=== PATIENT | female | born 1960 | race Caucasian/White ===

== ENCOUNTER 2018-06-04 17:30 | Inpatient (IN) | payer MEDICAID, OTHER ==
[~2018-06-04] VITALS: Ht 153.4 cm; Wt 47.2 kg
[2018-06-04 18:59] LABS: Basophils # (auto) 0 uL; Basophils % (auto) 0.1 % (0.0-2.0); Eosinophils # (auto) 0 uL; Hematocrit 40.6 % (36.0-46.0); Lymphocytes # (auto) 0.6 uL; Lymphocytes % (auto) 5.5 % (10.0-50.0); Mean Corpuscular Hemoglobin 28.4 pg (28.0-32.0); Mean Corpuscular Hgb Conc. 32.1 g/dL (32.0-36.0); Mean Corpuscular Volume 88.7 fL (80.0-100.0); Monocytes # (auto) 0.8 uL; Monocytes % (auto) 7.5 % (0.0-12.0); Neutrophils # (auto) 8.9 uL; Neutrophils % (auto) 86.9 % (37.0-80.0); Platelet Count (auto) 168 10^3/uL (140-450); Red Blood Cells 4.58 10^6/uL (4.0-5.20); Red Cell Distribution Width 15.5 % (11.8-14.3); White Blood Cell 10.2 10^3/uL (4.4-10.8)
[2018-06-04 19:19] LABS: Potassium 4.7 mmol/L (3.5-5.1)
[2018-06-04 19:23] LABS: BUN/Creatinine Ratio 15.2; Calcium 8.8 mg/dL (8.5-10.1); Magnesium 2.1 mg/dL (1.6-2.6)
[2018-06-04 19:29] LABS: Bilirubin, Total 0.6 mg/dL (0.2-1.0); Total Protein 6.8 g/dL (6.4-8.2)
[2018-06-04] MEDS ORDERED: SODIUM CHLORIDE 0.9% 1,000 ML IVB ONE (20:16)
[2018-06-04] MEDS ORDERED: ONDANSETRON HCL 4 MG/2 ML VIAL IV ONE (20:30)
[2018-06-04] MEDS: SODIUM CHLORIDE 0.9% 1,000 ML IV SCH (20:49)
[2018-06-04 20:57] LABS: Amylase 30 U/L (25-115); Lipase 74 U/L (73-393)
[2018-06-04] MEDS ORDERED: TEMAZEPAM 15 MG CAP PO PRN (21:00)
[2018-06-04] MEDS ORDERED: ASPirin 81 mg TAB PO ONE (21:00)
[2018-06-04] MEDS ORDERED: NITROGLYCERIN 0.4 MG SL TAB SL PRN (21:00)
[2018-06-04] MEDS ORDERED: ONDANSETRON HCL 4 MG/2 ML VIAL IV PRN (21:00)
[2018-06-04] MEDS ORDERED: MORPHINE SULF INJ 2 MG/ML SYRINGE 1ML IV PRN (21:00)
[2018-06-04 22:29] VITALS: BP 101/65
[2018-06-04] MEDS: ATORVASTATIN 20 MG TAB PO SCH (23:36)
[2018-06-04] MEDS: FAMOTIDINE 20 MG TAB PO SCH (23:36)
[2018-06-04 23:44] VITALS: BP 101/65
[2018-06-05] MEDS ORDERED: INDO50CA82 PO (00:24)
[2018-06-05] MEDS ORDERED: HYDR-4683 PO (00:24)
[2018-06-05 00:32] VITALS: BP 101/65
[2018-06-05 04:44] LABS: Basophils # (auto) 0.1 uL; Basophils % (auto) 0.8 % (0.0-2.0); Eosinophils # (auto) 0.1 uL; Eosinophils % (auto) 1.3 % (0.0-7.0); Hematocrit 36.4 % (36.0-46.0); Hemoglobin 11.9 g/dL (12.2-16.2); Lymphocytes # (auto) 1.6 uL; Lymphocytes % (auto) 20.1 % (10.0-50.0); Mean Corpuscular Hemoglobin 28.6 pg (28.0-32.0); Mean Corpuscular Hgb Conc. 32.8 g/dL (32.0-36.0); Mean Corpuscular Volume 87.2 fL (80.0-100.0); Monocytes # (auto) 0.9 uL; Monocytes % (auto) 10.5 % (0.0-12.0); Neutrophils # (auto) 5.5 uL; Neutrophils % (auto) 67.3 % (37.0-80.0); Nucleated Red Blood Cells % 0.1 %; Platelet Count (auto) 186 10^3/uL (140-450); Red Blood Cells 4.17 10^6/uL (4.0-5.20); Red Cell Distribution Width 15.4 % (11.8-14.3); White Blood Cell 8.2 10^3/uL (4.4-10.8)
[2018-06-05 05:14] LABS: Albumin 2.5 g/dL (3.4-5.0); BUN/Creatinine Ratio 25.4; Bilirubin, Total 0.3 mg/dL (0.2-1.0); Calcium 8.3 mg/dL (8.5-10.1); Potassium 3.8 mmol/L (3.5-5.1); Total Protein 5.7 g/dL (6.4-8.2)
[2018-06-05 05:28] VITALS: BP 107/70
[2018-06-05 08:21] LABS: Alcohol, Urine < 3.0 mg/dL (0-5); Amphetamine Screen, Urine POSITIVE (NEGATIVE); Barbiturate Scree,Urine NEGATIVE (NEGATIVE); Benzodiazephine Screen, Urine NEGATIVE (NEGATIVE); Cannabinoid Screen, Urine NEGATIVE (NEGATIVE); Cocaine Screen, Urine NEGATIVE (NEGATIVE); Opiate Scree,Urine POSITIVE (NEGATIVE); Phencyclidine Screen, Urine NEGATIVE (NEGATIVE); Urine Bacteria MOD /hpf (None Seen); Urine Blood Negative /uL (Negative); Urine Hyaline Cast FEW /lpf (0 - 2); Urine Mucus FEW (None Seen); Urine Specific Gravity 1.023 (1.001-1.035); Urine WBC 4 /hpf (0 - 5)
[2018-06-05 09:02] VITALS: BP 105/67
[2018-06-05] MEDS: ACETAMINOPHEN 325 MG TAB PO PRN ×2 (09:21→13:50)
[2018-06-05] MEDS: FAMOTIDINE 20 MG TAB PO SCH ×2 (09:23→20:31)
[2018-06-05] MEDS: ENOXAPARIN SOD 40 MG/0.4 ML SYRINGE SC SCH (09:24)
[2018-06-05] MEDS: ASPirin 81 mg TAB PO SCH (09:24)
[2018-06-05] MEDS: SODIUM CHLORIDE 0.9% 1,000 ML IV SCH ×2 (09:26→23:29)
[2018-06-05] MEDS: THIAMINE INJ 100 MG, MULTIPLE VITAMIN 10 ML, FOLIC ACID 1 MG, MAGNESIUM SULF SDV 50% 8 ... IV SCH ×5 (12:00)
[2018-06-05] MEDS ORDERED: ADENOSINE 66 MG in GIVE UN-DILUTED 0 ML IV ONE (12:30)
[2018-06-05] MEDS ORDERED: ALBUTEROL SULF 2.5 MG/0.5ML(0.5%) NEB SOLN NEB ONE (12:45)
[2018-06-05] MEDS ORDERED: IPRATROPIUM BROM 0.5 MG/2.5ML INH SOL NEB ONE (12:45)
[2018-06-05 12:58] VITALS: BP 83/102
[2018-06-05] MEDS: LORazepam 2MG/ML-1ML VIAL IV PRN ×2 (13:58→20:31)
[2018-06-05 16:49] VITALS: BP 119/80
[2018-06-05] MEDS: ATORVASTATIN 20 MG TAB PO SCH (20:31)
[2018-06-05 21:30] VITALS: BP 143/86
[2018-06-06 05:00] VITALS: BP 125/85
[2018-06-06 06:13] LABS: Basophils # (auto) 0.1 uL; Basophils % (auto) 0.6 % (0.0-2.0); Eosinophils # (auto) 0.1 uL; Eosinophils % (auto) 1.3 % (0.0-7.0); Hematocrit 39.6 % (36.0-46.0); Lymphocytes # (auto) 1.8 uL; Lymphocytes % (auto) 19.4 % (10.0-50.0); Mean Corpuscular Hemoglobin 28.4 pg (28.0-32.0); Mean Corpuscular Hgb Conc. 32.9 g/dL (32.0-36.0); Mean Corpuscular Volume 86.5 fL (80.0-100.0); Monocytes # (auto) 0.8 uL; Monocytes % (auto) 9.1 % (0.0-12.0); Neutrophils # (auto) 6.3 uL; Neutrophils % (auto) 69.6 % (37.0-80.0); Nucleated Red Blood Cells % 0.1 %; Platelet Count (auto) 233 10^3/uL (140-450); Red Blood Cells 4.58 10^6/uL (4.0-5.20); White Blood Cell 9.1 10^3/uL (4.4-10.8)
[2018-06-06 06:36] LABS: Albumin 2.6 g/dL (3.4-5.0); BUN/Creatinine Ratio 19.6; Bilirubin, Total 0.4 mg/dL (0.2-1.0); Calcium 8.4 mg/dL (8.5-10.1); Magnesium 2.3 mg/dL (1.6-2.6); Potassium 3.8 mmol/L (3.5-5.1); Total Protein 6.1 g/dL (6.4-8.2)
[2018-06-06] MEDS: LORazepam 2MG/ML-1ML VIAL IV PRN ×2 (07:00→23:11)
[2018-06-06 09:00] VITALS: BP 135/87
[2018-06-06] MEDS: FAMOTIDINE 20 MG TAB PO SCH ×2 (10:00→21:46)
[2018-06-06] MEDS: ASPirin 81 mg TAB PO SCH (10:00)
[2018-06-06] MEDS: ENOXAPARIN SOD 40 MG/0.4 ML SYRINGE SC SCH (10:01)
[2018-06-06] MEDS: THIAMINE INJ 100 MG, MULTIPLE VITAMIN 10 ML, FOLIC ACID 1 MG, MAGNESIUM SULF SDV 50% 8 ... IV SCH ×10 (12:00→23:19)
[2018-06-06] MEDS: SODIUM CHLORIDE 0.9% 1,000 ML IV SCH (12:49)
[2018-06-06 13:00] VITALS: BP 136/88
[2018-06-06] MEDS ORDERED: chlordiazePOXIDE HCL 25 MG CAP PO ONE (13:30)
[2018-06-06] MEDS: NICOTINE 21MG/24 HR TOPICAL PATCH TD SCH (13:45)
[2018-06-06] MEDS ORDERED: chlordiazePOXIDE HCL 25 MG CAP PO SCH (18:00)
[2018-06-06] MEDS: chlordiazePOXIDE HCL 25 MG CAP PO SCH (18:02)
[2018-06-06] MEDS: ATORVASTATIN 20 MG TAB PO SCH (21:47)
[2018-06-06] MEDS: ACETAMINOPHEN 325 MG TAB PO PRN (21:47)
[2018-06-06 22:00] VITALS: BP 126/78
[2018-06-07] MEDS: chlordiazePOXIDE HCL 25 MG CAP PO SCH ×5 (00:42→23:46)
[2018-06-07] MEDS: SODIUM CHLORIDE 0.9% 1,000 ML IV SCH ×3 (02:09→21:19)
[2018-06-07 05:00] VITALS: BP 141/87
[2018-06-07] MEDS: LORazepam 2MG/ML-1ML VIAL IV PRN ×4 (05:27→21:09)
[2018-06-07] MEDS: ACETAMINOPHEN 325 MG TAB PO PRN ×2 (05:27→23:47)
[2018-06-07 09:00] VITALS: BP 114/63
[2018-06-07] MEDS: ENOXAPARIN SOD 40 MG/0.4 ML SYRINGE SC SCH (10:46)
[2018-06-07] MEDS: FAMOTIDINE 20 MG TAB PO SCH ×2 (10:46→23:43)
[2018-06-07] MEDS: ASPirin 81 mg TAB PO SCH (10:46)
[2018-06-07] MEDS: NICOTINE 21MG/24 HR TOPICAL PATCH TD SCH (10:47)
[2018-06-07 13:00] VITALS: BP 102/58
[2018-06-07 13:51] LABS: Basophils # (auto) 0 uL; Basophils % (auto) 0.6 % (0.0-2.0); Eosinophils # (auto) 0.3 uL; Eosinophils % (auto) 3.5 % (0.0-7.0); Hematocrit 45.3 % (36.0-46.0); Hemoglobin 14.5 g/dL (12.2-16.2); Lymphocytes # (auto) 2.1 uL; Lymphocytes % (auto) 27.3 % (10.0-50.0); Mean Corpuscular Hemoglobin 27.8 pg (28.0-32.0); Mean Corpuscular Hgb Conc. 31.9 g/dL (32.0-36.0); Mean Corpuscular Volume 87.2 fL (80.0-100.0); Monocytes # (auto) 0.5 uL; Monocytes % (auto) 6.9 % (0.0-12.0); Neutrophils # (auto) 4.7 uL; Neutrophils % (auto) 61.7 % (37.0-80.0); Nucleated Red Blood Cells % 0.2 %; Platelet Count (auto) 257 10^3/uL (140-450); Red Cell Distribution Width 15.5 % (11.8-14.3); White Blood Cell 7.6 10^3/uL (4.4-10.8)
[2018-06-07 14:14] LABS: Albumin 2.5 g/dL (3.4-5.0); BUN/Creatinine Ratio 14.1; Calcium 8.8 mg/dL (8.5-10.1); Potassium 4.4 mmol/L (3.5-5.1)
[2018-06-07 14:16] LABS: Bilirubin, Total 0.3 mg/dL (0.2-1.0); Total Protein 6.4 g/dL (6.4-8.2)
[2018-06-07 17:10] VITALS: BP 124/70
[2018-06-07 21:16] VITALS: BP 132/87
[2018-06-07] MEDS: ATORVASTATIN 20 MG TAB PO SCH (23:43)
[2018-06-08] MEDS: LORazepam 2MG/ML-1ML VIAL IV PRN (03:00)
[2018-06-08] MEDS ORDERED: HALOPERIDOL LACTATE 5 MG/ML INJ VIAL IM ONE (04:15)
[2018-06-08] MEDS ORDERED: HALOPERIDOL LACTATE 5 MG/ML INJ VIAL ONE (04:18)
[2018-06-08] MEDS: chlordiazePOXIDE HCL 25 MG CAP PO SCH ×4 (07:05→23:14)
[2018-06-08] MEDS ORDERED: HALOPERIDOL LACTATE 5 MG/ML INJ VIAL IM PRN (08:30)
[2018-06-08 09:00] VITALS: BP 133/74
[2018-06-08] MEDS: ASPirin 81 mg TAB PO SCH (10:00)
[2018-06-08] MEDS: FAMOTIDINE 20 MG TAB PO SCH ×2 (10:00→22:00)
[2018-06-08] MEDS: NICOTINE 21MG/24 HR TOPICAL PATCH TD SCH (10:50)
[2018-06-08] MEDS: ENOXAPARIN SOD 40 MG/0.4 ML SYRINGE SC SCH (10:51)
[2018-06-08] MEDS: THIAMINE INJ 100 MG, MULTIPLE VITAMIN 10 ML, FOLIC ACID 1 MG, MAGNESIUM SULF SDV 50% 8 ... IV SCH ×5 (12:00)
[2018-06-08 13:00] VITALS: BP 144/103
[2018-06-08 17:13] VITALS: BP 139/101
[2018-06-08 20:24] VITALS: BP 142/50
[2018-06-08] MEDS: ATORVASTATIN 20 MG TAB PO SCH (22:01)
[2018-06-08] MEDS: SODIUM CHLORIDE 0.9% 1,000 ML IV SCH (23:14)
[2018-06-09 05:00] VITALS: BP 126/74
[2018-06-09] MEDS: chlordiazePOXIDE HCL 25 MG CAP PO SCH ×5 (05:51→23:12)
[2018-06-09 08:24] VITALS: BP 135/89
[2018-06-09] MEDS: NICOTINE 21MG/24 HR TOPICAL PATCH TD SCH (09:08)
[2018-06-09] MEDS: ASPirin 81 mg TAB PO SCH (09:08)
[2018-06-09] MEDS: FAMOTIDINE 20 MG TAB PO SCH ×2 (09:09→21:21)
[2018-06-09] MEDS: ACETAMINOPHEN 325 MG TAB PO PRN ×2 (09:09→21:21)
[2018-06-09] MEDS: ENOXAPARIN SOD 40 MG/0.4 ML SYRINGE SC SCH (09:10)
[2018-06-09] MEDS: THIAMINE INJ 100 MG, MULTIPLE VITAMIN 10 ML, FOLIC ACID 1 MG, MAGNESIUM SULF SDV 50% 8 ... IV SCH ×5 (11:45)
[2018-06-09 12:57] VITALS: BP 137/77
[2018-06-09] MEDS ORDERED: ALBUTEROL SULF 2.5 MG/0.5ML(0.5%) NEB SOLN NEB PRN (13:45)
[2018-06-09 14:11] LABS: Basophils # (auto) 0.1 uL; Basophils % (auto) 0.7 % (0.0-2.0); Eosinophils # (auto) 0.3 uL; Eosinophils % (auto) 4.2 % (0.0-7.0); Hematocrit 38.9 % (36.0-46.0); Hemoglobin 12.8 g/dL (12.2-16.2); Lymphocytes # (auto) 2.1 uL; Lymphocytes % (auto) 27.4 % (10.0-50.0); Mean Corpuscular Hemoglobin 28.2 pg (28.0-32.0); Mean Corpuscular Hgb Conc. 32.8 g/dL (32.0-36.0); Mean Corpuscular Volume 86.1 fL (80.0-100.0); Monocytes # (auto) 0.5 uL; Monocytes % (auto) 6.4 % (0.0-12.0); Neutrophils # (auto) 4.7 uL; Neutrophils % (auto) 61.3 % (37.0-80.0); Platelet Count (auto) 256 10^3/uL (140-450); Red Blood Cells 4.52 10^6/uL (4.0-5.20); Red Cell Distribution Width 14.9 % (11.8-14.3); White Blood Cell 7.6 10^3/uL (4.4-10.8)
[2018-06-09 14:28] LABS: Alanine Aminotransferase 24 U/L (13-56); Albumin 2.5 g/dL (3.4-5.0); Anion Gap 7 (5-15); Aspartate Aminotransferase 28 U/L (15-37); BUN/Creatinine Ratio 9.9; Blood Urea Nitrogen 14 mg/dL (7-18); Calcium 8.7 mg/dL (8.5-10.1); Carbon Dioxide 26 mmol/L (21-32); Chloride 111 mmol/L (98-107); GFR African American 49 mL/min; GFR Non-African American 41 mL/min; Glucose 94 mg/dL (74-106); Potassium 4.4 mmol/L (3.5-5.1); Sodium 144 mmol/L (136-145)
[2018-06-09 14:30] LABS: Alkaline Phosphatase 95 U/L (45-117); Bilirubin, Total 0.2 mg/dL (0.2-1.0); Total Protein 6.2 g/dL (6.4-8.2)
[2018-06-09] MEDS ORDERED: LORazepam 2MG/ML-1ML VIAL IV PRN (16:30)
[2018-06-09] MEDS: ALBUTEROL SULF 2.5 MG/0.5ML(0.5%) NEB SOLN NEB SCH (16:56)
[2018-06-09 17:00] VITALS: BP 132/78
[2018-06-09] MEDS: ATORVASTATIN 20 MG TAB PO SCH (21:20)
[2018-06-09 22:00] VITALS: BP 140/76
[2018-06-10] MEDS: ACETAMINOPHEN 325 MG TAB PO PRN ×2 (05:09→20:28)
[2018-06-10] MEDS: chlordiazePOXIDE HCL 25 MG CAP PO SCH ×3 (05:09→17:54)
[2018-06-10 05:25] VITALS: BP 123/78
[2018-06-10] MEDS: ALBUTEROL SULF 2.5 MG/0.5ML(0.5%) NEB SOLN NEB SCH ×6 (06:00→23:39)
[2018-06-10 09:00] VITALS: BP 129/78
[2018-06-10 09:03] LABS: Basophils # (auto) 0 uL; Basophils % (auto) 0.5 % (0.0-2.0); Eosinophils # (auto) 0.4 uL; Hemoglobin 14.2 g/dL (12.2-16.2); Lymphocytes # (auto) 1.9 uL; Lymphocytes % (auto) 24.9 % (10.0-50.0); Mean Corpuscular Hemoglobin 27.9 pg (28.0-32.0); Mean Corpuscular Hgb Conc. 31.6 g/dL (32.0-36.0); Mean Corpuscular Volume 88.3 fL (80.0-100.0); Monocytes # (auto) 0.4 uL; Monocytes % (auto) 4.9 % (0.0-12.0); Neutrophils # (auto) 4.9 uL; Neutrophils % (auto) 64.7 % (37.0-80.0); Platelet Count (auto) 258 10^3/uL (140-450); Red Blood Cells 5.09 10^6/uL (4.0-5.20); Red Cell Distribution Width 15.6 % (11.8-14.3); White Blood Cell 7.5 10^3/uL (4.4-10.8)
[2018-06-10 09:20] LABS: Alanine Aminotransferase 27 U/L (13-56); Albumin 2.7 g/dL (3.4-5.0); Anion Gap 6 (5-15); Aspartate Aminotransferase 28 U/L (15-37); BUN/Creatinine Ratio 18.6; Blood Urea Nitrogen 16 mg/dL (7-18); Calcium 9.5 mg/dL (8.5-10.1); Carbon Dioxide 25 mmol/L (21-32); Chloride 109 mmol/L (98-107); GFR African American 87 mL/min; GFR Non-African American 72 mL/min; Glucose 156 mg/dL (74-106); Potassium 3.9 mmol/L (3.5-5.1); Sodium 140 mmol/L (136-145)
[2018-06-10 09:23] LABS: Alkaline Phosphatase 103 U/L (45-117); Bilirubin, Total 0.3 mg/dL (0.2-1.0); Total Protein 6.7 g/dL (6.4-8.2)
[2018-06-10] MEDS: ENOXAPARIN SOD 40 MG/0.4 ML SYRINGE SC SCH (10:30)
[2018-06-10] MEDS: ASPirin 81 mg TAB PO SCH (10:31)
[2018-06-10] MEDS: NICOTINE 21MG/24 HR TOPICAL PATCH TD SCH (10:31)
[2018-06-10] MEDS: FAMOTIDINE 20 MG TAB PO SCH ×2 (10:31→21:58)
[2018-06-10] MEDS: THIAMINE INJ 100 MG, MULTIPLE VITAMIN 10 ML, FOLIC ACID 1 MG, MAGNESIUM SULF SDV 50% 8 ... IV SCH ×5 (12:00)
[2018-06-10 13:00] VITALS: BP 148/90
[2018-06-10 17:00] VITALS: BP 103/60
[2018-06-10] MEDS: ATORVASTATIN 20 MG TAB PO SCH (21:58)
[2018-06-11] MEDS: chlordiazePOXIDE HCL 25 MG CAP PO SCH ×5 (00:15→21:50)
[2018-06-11 00:20] VITALS: BP 154/80
[2018-06-11] MEDS: ACETAMINOPHEN 325 MG TAB PO PRN (05:08)
[2018-06-11 05:32] VITALS: BP 127/79
[2018-06-11] MEDS: ALBUTEROL SULF 2.5 MG/0.5ML(0.5%) NEB SOLN NEB SCH ×3 (05:58→19:50)
[2018-06-11 09:00] VITALS: BP 129/77
[2018-06-11] MEDS: ASPirin 81 mg TAB PO SCH (09:50)
[2018-06-11] MEDS: NICOTINE 21MG/24 HR TOPICAL PATCH TD SCH (09:50)
[2018-06-11] MEDS: FAMOTIDINE 20 MG TAB PO SCH ×2 (09:51→21:49)
[2018-06-11] MEDS: ENOXAPARIN SOD 40 MG/0.4 ML SYRINGE SC SCH (09:51)
[2018-06-11] MEDS: THIAMINE INJ 100 MG, MULTIPLE VITAMIN 10 ML, FOLIC ACID 1 MG, MAGNESIUM SULF SDV 50% 8 ... IV SCH ×5 (12:00)
[2018-06-11 13:49] VITALS: BP 135/84
[2018-06-11 17:00] VITALS: BP 155/100
[2018-06-11 21:30] VITALS: BP 147/78
[2018-06-11] MEDS: ATORVASTATIN 20 MG TAB PO SCH (21:52)
[2018-06-12] MEDS: ALBUTEROL SULF 2.5 MG/0.5ML(0.5%) NEB SOLN NEB SCH ×2 (02:13→07:02)
[2018-06-12 05:10] VITALS: BP 128/69
[2018-06-12] MEDS: chlordiazePOXIDE HCL 25 MG CAP PO SCH (06:20)
[2018-06-12 08:00] VITALS: BP 125/81
[2018-06-12] MEDS: ASPirin 81 mg TAB PO SCH (09:43)
[2018-06-12] MEDS: NICOTINE 21MG/24 HR TOPICAL PATCH TD SCH (09:43)
[2018-06-12] MEDS: FAMOTIDINE 20 MG TAB PO SCH (09:43)
[2018-06-12] MEDS: ENOXAPARIN SOD 40 MG/0.4 ML SYRINGE SC SCH (09:44)
[2018-06-17] MEDS ORDERED: ASPI-498 PO (18:03)
== END 2018-06-12 11:23 | disposition home or self-care (01) | DRG 205 ==
LOC: EDBD 17:38 → EDSEX 17:38 → ER 17:38 → TELE 17:39 → TELE-WESTW 22:08
PROVIDERS: ADMIT Nurse Practitioner; ATTEND Internal Medicine
PROC: 4A02XM4 Measurement of Cardiac Total Activity, External Approach (ICD-10-PCS; principal; 2018-06-06)
DX: I42.7 Cardiomyopathy due to drug and external agent (principal); F10.231 Alcohol dependence with withdrawal delirium; E44.0 Moderate protein-calorie malnutrition; N18.3 Chronic kidney disease, stage 3 (moderate); F11.23 Opioid dependence with withdrawal; I42.6 Alcoholic cardiomyopathy; B19.20 Unspecified viral hepatitis C without hepatic coma; J98.11 Atelectasis; J44.9 Chronic obstructive pulmonary disease, unspecified; F12.10 Cannabis abuse, uncomplicated; F17.210 Nicotine dependence, cigarettes, uncomplicated; F15.10 Other stimulant abuse, uncomplicated; I12.9 Hypertensive chronic kidney disease with stage 1 through stage 4 chronic kidney disease, or unspecified chronic kidney disease; G40.909 Epilepsy, unspecified, not intractable, without status epilepticus; I25.10 Atherosclerotic heart disease of native coronary artery without angina pectoris; R32 Unspecified urinary incontinence; Z82.0 Family history of epilepsy and other diseases of the nervous system; Z88.0 Allergy status to penicillin; Y92.89 Other specified places as the place of occurrence of the external cause; Z82.49 Family history of ischemic heart disease and other diseases of the circulatory system; Z80.0 Family history of malignant neoplasm of digestive organs; Z80.8 Family history of malignant neoplasm of other organs or systems; Z80.1 Family history of malignant neoplasm of trachea, bronchus and lung; Z83.511 Family history of glaucoma; Z59.0 Homelessness; Z83.3 Family history of diabetes mellitus; Z68.20 Body mass index [BMI] 20.0-20.9, adult
CPT/HCPCS: 36415; 70551; 71045; 74176; 78452; 80053; 80307; 81001; 82150; 83690; 83735; 84484; 85025; 93005; 93017; 93306; 94640; 94761; 95819; 96361; 96365; 96375; 97116; J0153; J2405